=== PATIENT | male | born 1960 | race Asian ===

== ENCOUNTER 2018-11-11 22:27 | Emergency (ER) | payer OTHER, MEDICAID ==
[~2018-11-11] VITALS: Ht 170.2 cm; Wt 72.6 kg
[~2018-11-11 22:27] MED LIST: ACET-2165 GT; ALBU2.5V7 INH; ASPI-1153 GT; CARV3.1246 GT; DULR10 RC; ESCI10TA GT; FERR-57 GT; FLUD0.1T GT; FOLI-43 GT; HYDR-1189 GT; L. A1CAP12 GT; LEVE100S2 GT; LINA5TAB2 GT; LIP40 GT; METH750T3 GT; MOM GT; NA P133E41 RC; NPH,100V SUBCUT; NUT.237L67 PO; OMEG1CAP48 PO; TRI48 GT
[2018-11-11 22:30] VITALS: BP_SYST 116
[2018-11-11] MEDS ORDERED: GASTROGRAFIN 120 ML ONE (23:40)
[2018-11-11 23:48] VITALS: BP_SYST 128
== END 2018-11-11 23:48 | disposition home or self-care (01) ==
LOC: SED 22:27
DX: Z43.1 Encounter for attention to gastrostomy (principal); E11.9 Type 2 diabetes mellitus without complications; K21.9 Gastro-esophageal reflux disease without esophagitis; E78.5 Hyperlipidemia, unspecified; Z86.73 Personal history of transient ischemic attack (TIA), and cerebral infarction without residual deficits; Z88.0 Allergy status to penicillin; Z79.82 Long term (current) use of aspirin; Z79.899 Other long term (current) drug therapy
CPT/HCPCS: 43762; 74240; 99284; Q9963

== ENCOUNTER 2018-12-18 19:40 | Emergency (ER) | payer OTHER, MEDICAID ==
[~2018-12-18] VITALS: Ht 170.2 cm; Wt 77.1 kg
[2018-12-18 19:40] VITALS: BP_SYST 117
[~2018-12-18 19:40] MED LIST changes: +OMEG1CAP48 GT; -OMEG1CAP48 PO
[2018-12-18] MEDS ORDERED: GASTROGRAFIN 120 ML ONE (20:47)
[2018-12-18 23:41] VITALS: BP_SYST 110
== END 2018-12-18 23:38 | disposition home or self-care (01) ==
LOC: SED 19:40
DX: Z43.1 Encounter for attention to gastrostomy (principal); E11.9 Type 2 diabetes mellitus without complications; K21.9 Gastro-esophageal reflux disease without esophagitis; Z86.73 Personal history of transient ischemic attack (TIA), and cerebral infarction without residual deficits; Z88.0 Allergy status to penicillin; Z79.899 Other long term (current) drug therapy
CPT/HCPCS: 43762; 74240; 99284; Q9963

== ENCOUNTER 2019-01-06 21:16 | Inpatient (IN) | payer OTHER, MEDICAID ==
[~2019-01-06] VITALS: Ht 170.2 cm; Wt 64.9 kg
[2019-01-06 21:26] VITALS: BP_SYST 131
[2019-01-06 22:02] LABS: BASOPHILS % (AUTO) 0.6 % (0.0-2.0); EOSINOPHILS # (AUTO) 0.7 K/uL (0.0-0.4); EOSINOPHILS % (AUTO) 8.7 % (0.0-4.0); HEMATOCRIT 30.4 % (36-54); HEMOGLOBIN 9.9 g/dL (14.0-18.0); LYMPHOCYTES # (AUTO) 1.1 K/uL (1.0-5.5); LYMPHOCYTES % (AUTO) 14.3 % (20.5-51.5); MEAN CORPUSCULAR HEMOGLOBIN 27 pg (27-31); MEAN CORPUSCULAR HGB CONC 33 % (32-36); MEAN CORPUSCULAR VOLUME 83 fL (79.0-98.0); MONOCYTES # (AUTO) 0.4 K/uL (0.0-1.0); MONOCYTES % (AUTO) 4.6 % (1.7-9.3); NEUTROPHILS # (AUTO) 5.7 K/uL (1.8-7.7); NEUTROPHILS % (AUTO) 71.8 % (40.0-70.0); PLATELET COUNT (AUTO) 327 K/uL (130-430); RED BLOOD CELL COUNT(AUTO) 3.67 MIL/uL (4.2-6.2); RED CELL DISTRIBUTION WIDTH 19.4 % (9.0-15.0)
[2019-01-06 22:25] LABS: CALCIUM 10.1 mg/dL (8.4-11.0); CREATININE 4.75 mg/dL (0.55-1.30)
[2019-01-06 22:44] LABS: ALBUMIN 4.1 g/dL (3.4-4.8); TOTAL BILIRUBIN 1.1 mg/dL (0.0-1.0)
[2019-01-06] MEDS ORDERED: MIDO5TAB GT (23:07)
[2019-01-06] MEDS ORDERED: MINO30 GT (23:09)
[2019-01-06] MEDS ORDERED: CLOP75TA32 GT (23:10)
[2019-01-06 23:12] LABS: INR 0.9 (0.80-1.20); PROTHROMBIN TIME 9.2 SECS (9.5-12.5)
[2019-01-06] MEDS ORDERED: ASCO500T20 GT (23:19)
[2019-01-06] MEDS ORDERED: REN800 GT (23:24)
[2019-01-06] MEDS ORDERED: ACET-2634 PO (23:26)
[2019-01-06] MEDS ORDERED: ZINC220T GT (23:29)
[2019-01-06] MEDS ORDERED: BISACODYL 10 MG/SUPPOSITORY RC PRN (23:45)
[2019-01-06] MEDS ORDERED: ALBUTEROL SULFATE 0.083% 2.5 MG/3 ML VIAL.NEB INH PRN (23:45)
[2019-01-06] MEDS ORDERED: HYDROcodone/ACETAMIN 5-325 MG TAB (NORCO/ VICODIN) GT PRN (23:45)
[2019-01-06] MEDS ORDERED: ACETAMINOPHEN 500 MG TABLET PO PRN (23:45)
[2019-01-06] MEDS ORDERED: ACETAMINOPHEN 325 MG TABLET GT PRN (23:45)
[2019-01-06] MEDS ORDERED: MILK OF MAGNESIA 30 ML UDC GT PRN (23:45)
[2019-01-07 01:08] VITALS: BP_SYST 138
[2019-01-07] MEDS: INSULIN REGULAR, HUMAN 100 UNITS/ML, 10 ML VIAL (novoLIN R) SUBCUT PRN ×4 (01:55→18:11)
[2019-01-07] MEDS ORDERED: NA PHOS,M-B/NA PHOS,DI-BA 118 ML (FLEET ENEMA) RC PRN (07:15)
[2019-01-07 07:50] VITALS: BP_SYST 124
[2019-01-07] MEDS: INSULIN NPH 100 UNITS/ML 10 ML VIAL SUBCUT SCH ×2 (10:22→21:48)
[2019-01-07] MEDS: ASPIRIN 81 MG TABLET(ECOTRIN) GT SCH (10:23)
[2019-01-07] MEDS: FOLIC ACID 1 MG TABLET GT SCH (10:23)
[2019-01-07] MEDS: CLOPIDOGREL BISULFATE 75 MG TABLET PO SCH (10:23)
[2019-01-07] MEDS: LevETIRAcetam 500 MG/5 ML UDC ORAL LIQUID GT SCH ×2 (10:23→21:46)
[2019-01-07] MEDS: SEVELAMER HCL 800 MG TABLET GT SCH ×3 (10:23→21:45)
[2019-01-07] MEDS: CITALOPRAM HYDROBROMIDE 20 MG TABLET PO SCH (10:23)
[2019-01-07] MEDS: OMEGA-3/DHA/EPA/FISH OIL 1 GM CAPSULE GT SCH (10:23)
[2019-01-07] MEDS: MINERAL OIL 30 ML UDC GT SCH (10:23)
[2019-01-07] MEDS: FLUDROCORTISONE ACETATE 0.1 MG TABLET( FLORINEF) GT SCH (10:23)
[2019-01-07] MEDS: ASCORBIC ACID 500 MG TABLET GT SCH (10:24)
[2019-01-07 12:00] VITALS: BP_SYST 129
[2019-01-07 16:20] VITALS: BP_SYST 129
[2019-01-07 20:36] VITALS: BP_SYST 125
[2019-01-07] MEDS: ATORVASTATIN 20 MG TABLET GT SCH (21:45)
[2019-01-07] MEDS: FENOFIBRATE NANOCRYSTALLIZED 48 MG TABLET (TRICOR) GT SCH (21:45)
[2019-01-07] MEDS: MIDODRINE HCL 5 MG TABLET (PROAMATINE) GT SCH (21:45)
[2019-01-08 00:54] VITALS: BP_SYST 136
[2019-01-08] MEDS: MIDODRINE HCL 5 MG TABLET (PROAMATINE) GT SCH ×3 (06:34→22:07)
[2019-01-08] MEDS: MINERAL OIL 30 ML UDC GT SCH (08:43)
[2019-01-08] MEDS: OMEGA-3/DHA/EPA/FISH OIL 1 GM CAPSULE GT SCH (08:48)
[2019-01-08] MEDS: ASPIRIN 81 MG TABLET(ECOTRIN) GT SCH (08:49)
[2019-01-08] MEDS: SEVELAMER HCL 800 MG TABLET GT SCH ×3 (08:49→22:07)
[2019-01-08] MEDS: CLOPIDOGREL BISULFATE 75 MG TABLET PO SCH (08:49)
[2019-01-08] MEDS: CITALOPRAM HYDROBROMIDE 20 MG TABLET PO SCH (08:49)
[2019-01-08] MEDS: FOLIC ACID 1 MG TABLET GT SCH (08:49)
[2019-01-08] MEDS: FLUDROCORTISONE ACETATE 0.1 MG TABLET( FLORINEF) GT SCH (08:49)
[2019-01-08] MEDS: ASCORBIC ACID 500 MG TABLET GT SCH (08:50)
[2019-01-08] MEDS: INSULIN NPH 100 UNITS/ML 10 ML VIAL SUBCUT SCH ×2 (09:00→22:10)
[2019-01-08 09:02] VITALS: BP_SYST 136
[2019-01-08] MEDS: LevETIRAcetam 500 MG/5 ML UDC ORAL LIQUID GT SCH ×2 (11:20→22:08)
[2019-01-08 12:00] VITALS: BP_SYST 126
[2019-01-08] MEDS: INSULIN REGULAR, HUMAN 100 UNITS/ML, 10 ML VIAL (novoLIN R) SUBCUT PRN (17:22)
[2019-01-08 18:18] VITALS: BP_SYST 139
[2019-01-08 20:00] VITALS: BP_SYST 135
[2019-01-08] MEDS: FENOFIBRATE NANOCRYSTALLIZED 48 MG TABLET (TRICOR) GT SCH (22:07)
[2019-01-08] MEDS: ATORVASTATIN 20 MG TABLET GT SCH (22:07)
[2019-01-09] MEDS: INSULIN REGULAR, HUMAN 100 UNITS/ML, 10 ML VIAL (novoLIN R) SUBCUT PRN ×4 (00:06→18:05)
[2019-01-09 00:14] VITALS: BP_SYST 134
[2019-01-09 05:17] LABS: BASOPHILS # (AUTO) 0.1 K/uL (0.0-0.2); BASOPHILS % (AUTO) 0.9 % (0.0-2.0); EOSINOPHILS # (AUTO) 0.8 K/uL (0.0-0.4); EOSINOPHILS % (AUTO) 10.8 % (0.0-4.0); HEMOGLOBIN 10.3 g/dL (14.0-18.0); LYMPHOCYTES % (AUTO) 14.1 % (20.5-51.5); MEAN CORPUSCULAR HEMOGLOBIN 27 pg (27-31); MEAN CORPUSCULAR HGB CONC 33 % (32-36); MEAN CORPUSCULAR VOLUME 83 fL (79.0-98.0); MONOCYTES # (AUTO) 0.5 K/uL (0.0-1.0); MONOCYTES % (AUTO) 6.6 % (1.7-9.3); NEUTROPHILS # (AUTO) 4.8 K/uL (1.8-7.7); NEUTROPHILS % (AUTO) 67.6 % (40.0-70.0); PLATELET COUNT (AUTO) 283 K/uL (130-430); RED BLOOD CELL COUNT(AUTO) 3.76 MIL/uL (4.2-6.2)
[2019-01-09 05:48] LABS: CALCIUM 9.6 mg/dL (8.4-11.0); CREATININE 3.89 mg/dL (0.55-1.30); POTASSIUM 3.8 mmol/L (3.5-5.1)
[2019-01-09] MEDS: MIDODRINE HCL 5 MG TABLET (PROAMATINE) GT SCH ×3 (06:48→21:45)
[2019-01-09 07:51] VITALS: BP_SYST 137
[2019-01-09] MEDS: INSULIN NPH 100 UNITS/ML 10 ML VIAL SUBCUT SCH ×2 (09:00→22:04)
[2019-01-09] MEDS: FOLIC ACID 1 MG TABLET GT SCH (12:34)
[2019-01-09] MEDS: ASPIRIN 81 MG TABLET(ECOTRIN) GT SCH (12:35)
[2019-01-09] MEDS: CITALOPRAM HYDROBROMIDE 20 MG TABLET PO SCH (12:35)
[2019-01-09] MEDS: CLOPIDOGREL BISULFATE 75 MG TABLET PO SCH (12:35)
[2019-01-09] MEDS: OMEGA-3/DHA/EPA/FISH OIL 1 GM CAPSULE GT SCH (12:36)
[2019-01-09] MEDS: ASCORBIC ACID 500 MG TABLET GT SCH (12:36)
[2019-01-09] MEDS: MINERAL OIL 30 ML UDC GT SCH (12:37)
[2019-01-09] MEDS: FLUDROCORTISONE ACETATE 0.1 MG TABLET( FLORINEF) GT SCH (12:42)
[2019-01-09] MEDS: SEVELAMER HCL 800 MG TABLET GT SCH ×3 (12:43→21:46)
[2019-01-09] MEDS: LevETIRAcetam 500 MG/5 ML UDC ORAL LIQUID GT SCH ×2 (12:43→21:47)
[2019-01-09 13:46] VITALS: BP_SYST 101
[2019-01-09 14:45] LABS: ALBUMIN 3.6 g/dL (3.4-4.8); BILIRUBIN,DIRECT 0.2 mg/dL (0.0-0.3); TOTAL BILIRUBIN 0.6 mg/dL (0.0-1.0)
[2019-01-09 17:18] VITALS: BP_SYST 113
[2019-01-09 20:00] VITALS: BP_SYST 122
[2019-01-09] MEDS: ATORVASTATIN 20 MG TABLET GT SCH (21:46)
[2019-01-09] MEDS: FENOFIBRATE NANOCRYSTALLIZED 48 MG TABLET (TRICOR) GT SCH (21:46)
[2019-01-09] MEDS: MUPIROCIN 2% TOPICAL OINTMENT 22 GM NS SCH (21:48)
[2019-01-10] MEDS: INSULIN REGULAR, HUMAN 100 UNITS/ML, 10 ML VIAL (novoLIN R) SUBCUT PRN (00:20)
[2019-01-10 00:58] VITALS: BP_SYST 116
[2019-01-10] MEDS: MIDODRINE HCL 5 MG TABLET (PROAMATINE) GT SCH (05:54)
[2019-01-10 06:15] LABS: CALCIUM 9.2 mg/dL (8.4-11.0); CREATININE 3.46 mg/dL (0.55-1.30); POTASSIUM 3.6 mmol/L (3.5-5.1)
[2019-01-10 06:22] LABS: BASOPHILS # (AUTO) 0.1 K/uL (0.0-0.2); BASOPHILS % (AUTO) 1.1 % (0.0-2.0); EOSINOPHILS # (AUTO) 0.7 K/uL (0.0-0.4); EOSINOPHILS % (AUTO) 9.8 % (0.0-4.0); HEMATOCRIT 29.6 % (36-54); HEMOGLOBIN 9.8 g/dL (14.0-18.0); LYMPHOCYTES # (AUTO) 1.2 K/uL (1.0-5.5); LYMPHOCYTES % (AUTO) 16.6 % (20.5-51.5); MEAN CORPUSCULAR HEMOGLOBIN 27 pg (27-31); MEAN CORPUSCULAR HGB CONC 33 % (32-36); MEAN CORPUSCULAR VOLUME 83 fL (79.0-98.0); MONOCYTES # (AUTO) 0.5 K/uL (0.0-1.0); MONOCYTES % (AUTO) 6.9 % (1.7-9.3); NEUTROPHILS # (AUTO) 4.8 K/uL (1.8-7.7); NEUTROPHILS % (AUTO) 65.6 % (40.0-70.0); PLATELET COUNT (AUTO) 310 K/uL (130-430); RED BLOOD CELL COUNT(AUTO) 3.59 MIL/uL (4.2-6.2); RED CELL DISTRIBUTION WIDTH 18.9 % (9.0-15.0); WHITE BLOOD COUNT (AUTO) 7.3 K/uL (4.8-10.8)
[2019-01-10 08:34] VITALS: BP_SYST 137
[2019-01-10] MEDS: ASPIRIN 81 MG TABLET(ECOTRIN) GT SCH (08:35)
[2019-01-10] MEDS: MINERAL OIL 30 ML UDC GT SCH (08:35)
[2019-01-10] MEDS: CITALOPRAM HYDROBROMIDE 20 MG TABLET PO SCH (08:36)
[2019-01-10] MEDS: FOLIC ACID 1 MG TABLET GT SCH (08:36)
[2019-01-10] MEDS: LevETIRAcetam 500 MG/5 ML UDC ORAL LIQUID GT SCH (08:36)
[2019-01-10] MEDS: OMEGA-3/DHA/EPA/FISH OIL 1 GM CAPSULE GT SCH (08:36)
[2019-01-10] MEDS: ASCORBIC ACID 500 MG TABLET GT SCH (08:36)
[2019-01-10] MEDS: FLUDROCORTISONE ACETATE 0.1 MG TABLET( FLORINEF) GT SCH (08:36)
[2019-01-10] MEDS: SEVELAMER HCL 800 MG TABLET GT SCH (08:36)
[2019-01-10] MEDS: CLOPIDOGREL BISULFATE 75 MG TABLET PO SCH (08:36)
[2019-01-10] MEDS: MUPIROCIN 2% TOPICAL OINTMENT 22 GM NS SCH (08:36)
[2019-01-10] MEDS: INSULIN NPH 100 UNITS/ML 10 ML VIAL SUBCUT SCH (08:39)
[2019-01-10 10:09] VITALS: BP_SYST 137
== END 2019-01-10 10:57 | DRG 314 ==
LOC: SED 21:16 → STU 23:15 → SMU 01-08 19:33
PROVIDERS: ADMIT Family Medicine; ATTEND Family Medicine
PROC: 5A1D70Z Performance of Urinary Filtration, Intermittent, Less than 6 Hours Per Day (ICD-10-PCS; 2019-01-07)
PROC: 5A1D70Z Performance of Urinary Filtration, Intermittent, Less than 6 Hours Per Day (ICD-10-PCS; principal; 2019-01-09)
DX: T82.49XA Other complication of vascular dialysis catheter, initial encounter (principal); N18.6 End stage renal disease; G93.41 Metabolic encephalopathy; I12.0 Hypertensive chronic kidney disease with stage 5 chronic kidney disease or end stage renal disease; I69.351 Hemiplegia and hemiparesis following cerebral infarction affecting right dominant side; Y83.8 Other surgical procedures as the cause of abnormal reaction of the patient, or of later complication, without mention of misadventure at the time of the procedure; K21.9 Gastro-esophageal reflux disease without esophagitis; I25.10 Atherosclerotic heart disease of native coronary artery without angina pectoris; E78.5 Hyperlipidemia, unspecified; E11.51 Type 2 diabetes mellitus with diabetic peripheral angiopathy without gangrene; G40.909 Epilepsy, unspecified, not intractable, without status epilepticus; E11.22 Type 2 diabetes mellitus with diabetic chronic kidney disease; D64.9 Anemia, unspecified; Z99.2 Dependence on renal dialysis; Z89.512 Acquired absence of left leg below knee; Z88.0 Allergy status to penicillin; Z79.82 Long term (current) use of aspirin; Y92.89 Other specified places as the place of occurrence of the external cause
CPT/HCPCS: 36415; 80048; 80053; 80076; 82962; 85025; 85610-TC; 85730-TC; 87081; 90935; 90937; 92610-GN; 99285; G0378; J1815; J7030

== ENCOUNTER 2019-02-02 10:56 | Inpatient (IN) | payer OTHER, MEDICAID ==
[~2019-02-02] VITALS: Ht 162.6 cm; Wt 72.4 kg
[~2019-02-02 10:56] MED LIST changes: +ACET-2634 PO; +ASCO500T20 GT; -CARV3.1246 GT; +CLOP75TA32 GT; -FERR-57 GT; -L. A1CAP12 GT; -LINA5TAB2 GT; -METH750T3 GT; +MIDO5TAB GT; +MINO30 GT; -NUT.237L67 PO; +REN800 GT; +ZINC220T GT
[2019-02-02 11:00] VITALS: BP_SYST 125
[2019-02-02 11:40] LABS: BASOPHILS # (AUTO) 0.1 K/uL (0.0-0.2); BASOPHILS % (AUTO) 0.8 % (0.0-2.0); EOSINOPHILS # (AUTO) 0.5 K/uL (0.0-0.4); EOSINOPHILS % (AUTO) 6.7 % (0.0-4.0); HEMATOCRIT 26.9 % (36-54); HEMOGLOBIN 8.9 g/dL (14.0-18.0); LYMPHOCYTES # (AUTO) 0.8 K/uL (1.0-5.5); LYMPHOCYTES % (AUTO) 12.3 % (20.5-51.5); MEAN CORPUSCULAR HEMOGLOBIN 27 pg (27-31); MEAN CORPUSCULAR HGB CONC 33 % (32-36); MEAN CORPUSCULAR VOLUME 82 fL (79.0-98.0); MONOCYTES # (AUTO) 0.4 K/uL (0.0-1.0); MONOCYTES % (AUTO) 5.2 % (1.7-9.3); NEUTROPHILS # (AUTO) 5.1 K/uL (1.8-7.7); PLATELET COUNT (AUTO) 374 K/uL (130-430); RED BLOOD CELL COUNT(AUTO) 3.28 MIL/uL (4.2-6.2); RED CELL DISTRIBUTION WIDTH 19.9 % (9.0-15.0); WHITE BLOOD COUNT (AUTO) 6.8 K/uL (4.8-10.8)
[2019-02-02 11:49] LABS: CALCIUM 10.3 mg/dL (8.4-11.0); CREATININE 4.93 mg/dL (0.55-1.30); POTASSIUM 4.2 mmol/L (3.5-5.1); TOTAL BILIRUBIN 0.6 mg/dL (0.0-1.0)
[2019-02-02] MEDS ORDERED: ASPIRIN 325 MG TABLET PO ONE (12:15)
[2019-02-02 13:31] VITALS: BP_SYST 128
[2019-02-02 16:00] VITALS: BP_SYST 128
[2019-02-02] MEDS ORDERED: BISACODYL 10 MG/SUPPOSITORY RC PRN (18:45)
[2019-02-02] MEDS ORDERED: ACETAMINOPHEN 500 MG TABLET PO PRN (18:45)
[2019-02-02] MEDS ORDERED: ACETAMINOPHEN 325 MG TABLET GT PRN (18:45)
[2019-02-02] MEDS ORDERED: ALBUTEROL SULFATE 0.083% 2.5 MG/3 ML VIAL.NEB INH PRN (18:45)
[2019-02-02] MEDS ORDERED: HYDROcodone/ACETAMIN 5-325 MG TAB (NORCO/ VICODIN) GT PRN (18:45)
[2019-02-02] MEDS ORDERED: MILK OF MAGNESIA 30 ML UDC GT PRN (18:45)
[2019-02-02] MEDS ORDERED: D5W 1,000 ML IV PRN (19:00)
[2019-02-02] MEDS ORDERED: GLUCOSE 15 GM GEL (in 37.5 GM TUBE) PO PRN (19:00)
[2019-02-02] MEDS ORDERED: DEXTROSE 50%-WATER 50 ML DISP.SYRIN IVP PRN (19:00)
[2019-02-02] MEDS ORDERED: NA PHOS,M-B/NA PHOS,DI-BA 118 ML (FLEET ENEMA) RC PRN (19:15)
[2019-02-02] MEDS: INSULIN REGULAR, HUMAN 100 UNITS/ML, 10 ML VIAL (humuLIN R) SUBCUT PRN (19:55)
[2019-02-02 20:50] VITALS: BP_SYST 132
[2019-02-02] MEDS ORDERED: FENOFIBRATE NANOCRYSTALLIZED 48 MG TABLET (TRICOR) GT SCH (21:00)
[2019-02-02] MEDS ORDERED: ATORVASTATIN 20 MG TABLET GT SCH (21:00)
[2019-02-02] MEDS: LevETIRAcetam 500 MG/5 ML UDC ORAL LIQUID GT SCH (21:11)
[2019-02-02] MEDS: SEVELAMER HCL 800 MG TABLET GT SCH (21:11)
[2019-02-02] MEDS: MIDODRINE HCL 5 MG TABLET (PROAMATINE) GT SCH (21:11)
[2019-02-02 21:15] VITALS: BP_SYST 128
[2019-02-02] MEDS: INSULIN NPH 100 UNITS/ML 10 ML VIAL SUBCUT SCH (21:20)
[2019-02-03] MEDS: INSULIN REGULAR, HUMAN 100 UNITS/ML, 10 ML VIAL (humuLIN R) SUBCUT PRN (00:49)
[2019-02-03 01:18] VITALS: BP_SYST 150
[2019-02-03] MEDS: MIDODRINE HCL 5 MG TABLET (PROAMATINE) GT SCH (05:48)
[2019-02-03 06:28] LABS: BASOPHILS % (AUTO) 0.5 % (0.0-2.0); EOSINOPHILS # (AUTO) 0.3 K/uL (0.0-0.4); EOSINOPHILS % (AUTO) 5.4 % (0.0-4.0); HEMATOCRIT 26.8 % (36-54); HEMOGLOBIN 8.8 g/dL (14.0-18.0); LYMPHOCYTES # (AUTO) 0.8 K/uL (1.0-5.5); LYMPHOCYTES % (AUTO) 12.9 % (20.5-51.5); MEAN CORPUSCULAR HEMOGLOBIN 27 pg (27-31); MEAN CORPUSCULAR HGB CONC 33 % (32-36); MEAN CORPUSCULAR VOLUME 83 fL (79.0-98.0); MONOCYTES # (AUTO) 0.3 K/uL (0.0-1.0); MONOCYTES % (AUTO) 5.4 % (1.7-9.3); NEUTROPHILS # (AUTO) 4.8 K/uL (1.8-7.7); NEUTROPHILS % (AUTO) 75.8 % (40.0-70.0); PLATELET COUNT (AUTO) 361 K/uL (130-430); RED BLOOD CELL COUNT(AUTO) 3.23 MIL/uL (4.2-6.2); RED CELL DISTRIBUTION WIDTH 19.5 % (9.0-15.0); WHITE BLOOD COUNT (AUTO) 6.3 K/uL (4.8-10.8)
[2019-02-03 06:56] LABS: CALCIUM 9.9 mg/dL (8.4-11.0); CREATININE 5.07 mg/dL (0.55-1.30); POTASSIUM 4.5 mmol/L (3.5-5.1)
[2019-02-03 07:05] LABS: ALBUMIN 3.8 g/dL (3.4-4.8); TOTAL BILIRUBIN 0.6 mg/dL (0.0-1.0)
[2019-02-03 07:56] VITALS: BP_SYST 147
[2019-02-03] MEDS ORDERED: FLUDROCORTISONE ACETATE 0.1 MG TABLET( FLORINEF) GT SCH (09:00)
[2019-02-03] MEDS ORDERED: ASPIRIN 81 MG TABLET(ECOTRIN) GT SCH (09:00)
[2019-02-03] MEDS: INSULIN NPH 100 UNITS/ML 10 ML VIAL SUBCUT SCH (09:00)
[2019-02-03] MEDS ORDERED: ASCORBIC ACID 500 MG TABLET GT SCH (09:00)
[2019-02-03] MEDS ORDERED: MINERAL OIL 30 ML UDC GT SCH (09:00)
[2019-02-03] MEDS ORDERED: FOLIC ACID 1 MG TABLET GT SCH (09:00)
[2019-02-03] MEDS ORDERED: OMEGA-3/DHA/EPA/FISH OIL 1 GM CAPSULE GT SCH (09:00)
[2019-02-03] MEDS ORDERED: CITALOPRAM HYDROBROMIDE 20 MG TABLET GT SCH (09:00)
[2019-02-03] MEDS ORDERED: CLOPIDOGREL BISULFATE 75 MG TABLET GT SCH (09:00)
[2019-02-03] MEDS: SEVELAMER HCL 800 MG TABLET GT SCH (09:28)
[2019-02-03] MEDS: LevETIRAcetam 500 MG/5 ML UDC ORAL LIQUID GT SCH (10:39)
[2019-02-03 11:28] VITALS: BP_SYST 135
[2019-02-03 12:42] VITALS: BP_SYST 141
== END 2019-02-03 13:35 | disposition short-term general hospital (02) | DRG 314 ==
LOC: SED 10:56 → STU 12:16
PROVIDERS: ADMIT Family Medicine; ATTEND Family Medicine
DX: T82.898A Other specified complication of vascular prosthetic devices, implants and grafts, initial encounter (principal); N18.6 End stage renal disease; I13.2 Hypertensive heart and chronic kidney disease with heart failure and with stage 5 chronic kidney disease, or end stage renal disease; I69.351 Hemiplegia and hemiparesis following cerebral infarction affecting right dominant side; R47.01 Aphasia; E11.22 Type 2 diabetes mellitus with diabetic chronic kidney disease; K21.9 Gastro-esophageal reflux disease without esophagitis; E78.5 Hyperlipidemia, unspecified; I25.10 Atherosclerotic heart disease of native coronary artery without angina pectoris; E11.51 Type 2 diabetes mellitus with diabetic peripheral angiopathy without gangrene; I25.5 Ischemic cardiomyopathy; I50.9 Heart failure, unspecified; Y83.2 Surgical operation with anastomosis, bypass or graft as the cause of abnormal reaction of the patient, or of later complication, without mention of misadventure at the time of the procedure; Z99.2 Dependence on renal dialysis; Z88.0 Allergy status to penicillin; Z79.899 Other long term (current) drug therapy; I25.2 Old myocardial infarction; Y92.89 Other specified places as the place of occurrence of the external cause
CPT/HCPCS: 36415; 71045; 80053; 82550-TC; 82962; 84484; 85025; 85610-TC; 85730-TC; 87081; 93005; 99285; G0378; J1815

== ENCOUNTER 2019-04-01 12:19 | Emergency (ER) | payer OTHER, MEDICAID ==
[~2019-04-01] VITALS: Ht 170.2 cm; Wt 74.8 kg
--- NOTE | 2019-04-01 12:19 | NUR ---
placed in bed 3, triaged at bedside
[2019-04-01 12:20] VITALS: BP_SYST 134
--- NOTE | 2019-04-01 12:20 | NUR ---
Patient BIB BLS Ambulance from [facility]. Patient is awake, alert, and oriented x1. G-tube is ripped at the end, per paramedics it has been leaking since 0500 today, patient was sent to have a replacement inserted. Patient shows no signs or symptoms of distress.
--- NOTE | 2019-04-01 12:50 | NUR ---
Dr. Solitario @ bedside for examination.
--- NOTE | 2019-04-01 13:05 | NUR ---
G-tube replaced by Dr. Chavarria. New dressing applied.
[2019-04-01] MEDS ORDERED: GASTROGRAFIN 120 ML ONE (13:16)
--- NOTE | 2019-04-01 14:00 | NUR ---
Patient resting @ this time. No distress noted.
[2019-04-01 14:25] VITALS: BP_SYST 134
--- NOTE | 2019-04-01 14:25 | NUR ---
Patient given written and verbal discharge instructions and verbalizes understanding. ER MD discussed with patient the results and treatment provided. Patient in stable condition. ID arm band removed. Patient educated on pain management and to follow up with PMD. Pain Scale 0/10. Opportunity for questions provided and answered. Medication side effect fact sheet provided.
== END 2019-04-01 14:25 | disposition home or self-care (01) ==
LOC: SED 12:19
DX: Z43.1 Encounter for attention to gastrostomy (principal); E11.9 Type 2 diabetes mellitus without complications; K21.9 Gastro-esophageal reflux disease without esophagitis; E78.5 Hyperlipidemia, unspecified; Z86.79 Personal history of other diseases of the circulatory system; Z88.0 Allergy status to penicillin; Z79.82 Long term (current) use of aspirin; Z79.899 Other long term (current) drug therapy
CPT/HCPCS: 43762; 74240; 99284; Q9963